=== PATIENT | female | born 1975 | race Hispanic/Latino ===

== ENCOUNTER 2024-05-05 04:15 | Emergency (ER) | payer OTHER ==
[2024-05-05] MEDS ORDERED: methocarbamoL 500 MG TAB ONE (04:57)
[2024-05-05] MEDS ORDERED: ACETAMINOPHEN 500 MG TAB ONE (04:57)
[2024-05-05] MEDS ORDERED: KETOROLAC 30 MG/ML INJ ONE (04:58)
[2024-05-05] MEDS ORDERED: TDAP (DIPHTH,PERTUSS(ACELL),TET VAC) 0.5 ML VIAL IMVAC ONE (04:58)
--- NOTE | 2024-05-05 05:46 | ER ---
Nurse's Notes [facility] Name: Joyce Barnett Age: 48 yrs Sex: Female : 1975 Arrival Date: 05/05/2024 Time: 04:15 Bed 16 Private MD: Diagnosis: Sprain of ribs;Abrasion of right forearm Presentation: 05/05 04:35 Chief complaint: Patient states: Pt reports she was taking the trash out at 2130 last kb3 night and she tripped, falling forwards and striking her chest on the grass. Denies hand/wrist/arm injuries. 04:35 Method Of Arrival: Ambulatory kb3 04:35 Coronavirus screen: Vaccine status: Patient reports receiving the 2nd dose of the covid kb3 vaccine. Client denies travel out of the [place] in the last 14 days. Ebola Screen: Patient negative for fever greater than or equal to 101.5 degrees Fahrenheit, and additional compatible Ebola Virus Disease symptoms Patient denies exposure to infectious person. Patient denies travel to an Ebola-affected area in the 21 days before illness onset. Initial Sepsis Screen: Does the patient meet any 2 criteria? No. Patient's initial sepsis screen is negative. Does the patient have a suspected source of infection? No. Patient's initial sepsis screen is negative. Risk Assessment: Do you want to hurt yourself or someone else? Patient reports no desire to harm self or others. Onset of symptoms was May 04, 2024 at 21:30. 04:35 Acuity: NOEMI 4 kb3 Triage Assessment: 04:44 General: Appears in no apparent distress. uncomfortable, Behavior is calm, cooperative. kb3 Pain: Complains of pain in chest Pain does not radiate. Pain currently is 9 out of 10 on a pain scale. Musculoskeletal: Reports pain in chest. Historical: - Allergies: 04:44 No Known Allergies; kb3 - Home Meds: 04:44 None [Active]; kb3 - PMHx: 04:44 GERD; kb3 - PSHx: 04:44 None; kb3 - Immunization history:: Adult Immunizations up to date, Client reports receiving the 2nd dose of the Covid vaccine, Last tetanus immunization: unknown. - Infectious Disease History:: Denies. - Social history:: Smoking status: Patient denies any tobacco usage or history of. Screenin:07 [facility] ED Fall Risk Assessment (Adult) History of falling in the last 3 months, vc1 including since admission Yes- single mechanical fall (1 pt) Confusion or Disorientation No (0 pts) Intoxicated or Sedated No (0 pts) Impaired Gait No (0 pts) Mobility Assist Device Used No (0 pt) Altered Elimination No (0 pt) Score/Fall Risk Level 0 - 2 = Low Risk Oriented to surroundings, Maintained a safe environment, Educated pt \T\ family on fall prevention, incl call for assistance when getting out of bed. Abuse screen: Denies threats or abuse. Nutritional screening: No deficits noted. Tuberculosis screening: No symptoms or risk factors identified. Vital Signs: 04:35 BP 144 / 100; Pulse 83; Resp 16; Temp 97.5; Pulse Ox 100% ; Weight 105.69 kg; Height 5 kb3 ft. 5 in. ; Pain 9/10; 04:35 Body Mass Index 38.77 (105.69 kg, 165.1 cm) kb3 04:35 Pain Scale: Adult kb3 ED Course: 04:18 Patient arrived in ED. [id number] 04:21 Christian Velasco MD is Attending Physician. ec2 04:44 Triage completed. kb3 04:44 Arm band placed on right wrist. Patient placed in an exam room, on a stretcher. kb3 05:07 Rebecca Owen, LEROY is Primary Nurse. vc1 05:07 Patient has correct armband on for positive identification. Placed in gown. Bed in low vc1 position. Pulse ox on. NIBP on. 05:46 CXR XRAY In Process Unspecified. EDMS 05:46 Forearm Right XRAY In Process Unspecified. EDMS 06:17 No provider procedures requiring assistance completed. Patient did not have IV access vc1 during this emergency room visit. Administered Medications: 05:06 Drug: Boostrix Tdap IM 0.5 ml IM once; as a single dose Route: IM; Site: right deltoid; vc1 05:06 Drug: Ketorolac IM 30 mg IM once Route: IM; Site: left deltoid; vc1 05:07 Drug: Acetaminophen PO 1000 mg PO once Route: PO; vc1 05:07 Drug: Methocarbamol PO 500 mg PO once Route: PO; vc1 Medication: 05:08 Vaccine Information Statement (VIS) provided today. Questions and/or concerns vc1 addressed. VIS edition date: June 16, 2021. Outcome: 05:45 Discharge ordered by . ec2 06:17 Discharged to home ambulatory, vc1 06:17 Condition: good 06:17 Discharge instructions given to patient, Instructed on discharge instructions, follow up and referral plans. medication usage, Demonstrated understanding of instructions, follow-up care, medications, Prescriptions given X 1, 06:17 Patient left the ED. vc1 Signatures: Dispatcher [employer] Radha Bowden [email or web address] Rebecca Owen RN RN vc1 Shahnaz Watson, RN RN kb3 Christian Velasco MD MD ec2 Corrections: (The following items were deleted from the chart) 04:45 04:44 Home Meds: Nexium Oral; kb3 kb3
--- NOTE | 2024-05-05 05:46 | EDPHYS ---
Physician Documentation [facility] Name: Joyce Barnett Age: 48 yrs Sex: Female : 1975 Arrival Date: 05/05/2024 Time: 04:15 Bed 16 Private MD: ED Physician Christian Velasco HPI: 05/05 04:49 This 48 yrs old Female presents to ER via Ambulatory with complaints of Fall ec2 Injury. 04:49 Patient arrives today for evaluation of a fall injury. Reports that she was walking ec2 subsequently tripped and fell. Injury occurred approximately 7 hours prior to arrival. Patient reports chest wall pain as well as right forearm pain. Sustained an abrasion to the right forearm, unsure of last tetanus shot. No LOC, not on blood thinners, no head or neck pain.. Historical: - Allergies: 04:44 No Known Allergies; kb3 - Home Meds: 04:44 None [Active]; kb3 - PMHx: 04:44 GERD; kb3 - PSHx: 04:44 None; kb3 - Immunization history:: Adult Immunizations up to date, Client reports receiving the 2nd dose of the Covid vaccine, Last tetanus immunization: unknown. - Infectious Disease History:: Denies. - Social history:: Smoking status: Patient denies any tobacco usage or history of. ROS: 04:49 Constitutional: as per hpi ec2 Exam: 04:49 Constitutional: GEN: NAD Head: atraumatic Eyes: EOMI Ears: External ears are ec2 normal. CV: regular rate LUNGS: no respiratory distress ABD: non-distended SKIN: no evidence of rashes MSK: Chest wall TTP, right forearm TTP, hematoma noted, no significant swelling or deformities, intact distal neurovascular status. NEURO: moves all extremities equally Vital Signs: 04:35 BP 144 / 100; Pulse 83; Resp 16; Temp 97.5; Pulse Ox 100% ; Weight 105.69 kg; Height 5 kb3 ft. 5 in. ; Pain 9/10; 04:35 Body Mass Index 38.77 (105.69 kg, 165.1 cm) kb3 04:35 Pain Scale: Adult kb3 MDM: 04:25 Patient medically screened. ec2 04:49 Data reviewed: vital signs. ED course: Patient arrives today for evaluation of a fall ec2 injury. Examination remarkable reproducible chest wall TTP as well as right forearm TTP without deformities or crepitus with intact distal neurovascular status. Will obtain radiograph of the chest as well as for right forearm, will update her tetanus status and give the patient medication for pain. Suspect contusions, additionally considered fractures, doubt other process such as pneumo or hemothorax . 05:45 ED course: Chest x-ray independently reviewed and interpreted by me, shows no bony ec2 fracture. Forearm x-ray independently reviewed and interpreted by me, shows no fracture. On reassessment patient remains well-appearing in no acute distress. Will discharge home. Return precautions given. 05/05 04:48 Order name: CXR XRAY ec2 05/05 04:48 Order name: Forearm Right XRAY ec2 Administered Medications: 05:06 Drug: Boostrix Tdap IM 0.5 ml IM once; as a single dose Route: IM; Site: right deltoid; vc1 05:06 Drug: Ketorolac IM 30 mg IM once Route: IM; Site: left deltoid; vc1 05:07 Drug: Acetaminophen PO 1000 mg PO once Route: PO; vc1 05:07 Drug: Methocarbamol PO 500 mg PO once Route: PO; vc1 Disposition Summary: 05/05/24 05:45 Discharge Ordered Notes: Location: Home ec2 Condition: Stable ec2 Diagnosis - Sprain of ribs ec2 - Abrasion of right forearm ec2 Followup: ec2 - With: Private Physician - When: - Reason: Re-evaluation by your physician Discharge Instructions: - Discharge Summary Sheet ec2 - Rib Contusion ec2 Forms: - Medication Reconciliation Form ec2 - Antibiotic Education ec2 - Prescription Opioid Use ec2 - Patient Portal Instructions ec2 - Leadership Thank You Letter ec2 Prescriptions: - methocarbamol 500 mg Oral tablet - take 2 tablets ORAL route 4 times per day; 15 tablet; Refills: 0, Product ec2 Selection Permitted Signatures: Dispatcher [employer] Rebecca Ritter RN RN vc1 Shahnaz Watson RN RN kb3 Christian Velasco MD MD ec2 Corrections: (The following items were deleted from the chart) 04:45 04:44 Home Meds: Nexium Oral; kb3 kb3
[2024-05-05 10:44] VITALS: BP 144/100; TEMP 97.5; O2SAT 100
--- NOTE | 2024-05-05 12:04 | RAD REPORT ---
EXAM DESCRIPTION: RAD - Chest Single View - 05/05/2024 5:45 am CLINICAL HISTORY: The patient is 48 years old and is Female; fall TECHNIQUE: Single view of the chest. COMPARISON: No relevant prior studies available. FINDINGS: Lungs: No pulmonary vascular congestion or consolidation. Pleural space: Unremarkable. No pneumothorax. Heart: Unremarkable. No cardiomegaly. Mediastinum: Unremarkable. Bones/joints: No acute fracture visualized. Upper abdomen: No free air in the visualized upper abdomen. IMPRESSION: No acute findings. Electronically signed by: Lily Mandel MD 05/05/2024 06:22 AM CDT RP ND Due to temporary technical issues with the PACS/Fluency reporting system, reports are being signed by the in house radiologists without review as a courtesy to insure prompt reporting. The interpreting radiologist is fully responsible for the content of the report.
--- NOTE | 2024-05-05 14:09 | RAD REPORT ---
EXAM DESCRIPTION: RAD - Forearm Right - 05/05/2024 5:45 am CLINICAL HISTORY: The patient is 48 years old and is Female; PAIN TECHNIQUE: Two views of the right forearm. COMPARISON: No relevant prior studies available. FINDINGS: Bones/joints: Unremarkable. No acute fracture. No dislocation. Soft tissues: Soft tissue swelling. IMPRESSION: Soft tissue swelling. Electronically signed by: Lily Mandel MD 05/05/2024 06:22 AM CDT RP ND Due to temporary technical issues with the PACS/Fluency reporting system, reports are being signed by the in house radiologists without review as a courtesy to insure prompt reporting. The interpreting radiologist is fully responsible for the content of the report.
== END 2024-05-05 06:17 | disposition home or self-care (01) ==
LOC: ER 04:15
DX: S23.41XA Sprain of ribs, initial encounter (principal); S50.811A Abrasion of right forearm, initial encounter; W01.0XXA Fall on same level from slipping, tripping and stumbling without subsequent striking against object, initial encounter
CPT/HCPCS: 71045